=== PATIENT | male | born 1955 | race Caucasian/White ===

== ENCOUNTER 2019-01-06 12:23 | Day surgery (SDC) | payer MEDICAID ==
[~2019-01-06] VITALS: Ht 180.3 cm; Wt 90.0 kg
[~2019-01-06 12:23] MED LIST: LIDOCAINE/PF 2% 5 ML VIAL INJ ONE; PROPOFOL 1% 20 ML VIAL IVP ONE; SODIUM CHLORIDE 0.9% 1,000 ML IV ONE
[2019-01-06] MEDS ORDERED: SODIUM CHLORIDE 0.9% 1,000 ML IV ONE (12:30)
[2019-01-06 13:09] LABS: GLUCOMETER DEV NAME(LOC) SDS.; GLUCOSE,POINT OF CARE 176 MG/DL (70-110)
[2019-01-06] MEDS ORDERED: NORT25 PO (13:43)
[2019-01-06] MEDS ORDERED: BUPR100SR PO (13:43)
[2019-01-06] MEDS ORDERED: METF-960 PO (13:43)
[2019-01-06] MEDS ORDERED: LOSA50TA64 PO (13:43)
[2019-01-06] MEDS ORDERED: VALG450T13 PO (13:43)
[2019-01-06] MEDS ORDERED: MULT-1203 PO (13:43)
[2019-01-06] MEDS ORDERED: PRAV40TA4 PO (13:43)
[2019-01-06] MEDS ORDERED: ANDROGEL TP (13:43)
[2019-01-06] MEDS ORDERED: TADA5TAB PO (13:43)
[2019-01-06] MEDS ORDERED: LIRA0.6P SQ (13:43)
[2019-01-06] MEDS ORDERED: ELVI1TAB3 PO (13:43)
[2019-01-06] MEDS ORDERED: BIMA12.5OS OU (13:43)
[2019-01-06] MEDS ORDERED: CARV25 PO (13:43)
[2019-01-06] MEDS ORDERED: HYDR25TA PO (13:43)
== END 2019-01-06 15:10 | disposition home or self-care (01) ==
LOC: SURGERY 12:23
PROVIDERS: ATTEND Internal Medicine Gastroenterology
DX: K64.1 Second degree hemorrhoids (principal); R19.4 Change in bowel habit; K74.60 Unspecified cirrhosis of liver; K21.9 Gastro-esophageal reflux disease without esophagitis; B19.20 Unspecified viral hepatitis C without hepatic coma; E78.00 Pure hypercholesterolemia, unspecified; B20 Human immunodeficiency virus [HIV] disease; E11.39 Type 2 diabetes mellitus with other diabetic ophthalmic complication
CPT/HCPCS: 45378; 82962; J2704; J3490; J7030